=== PATIENT | female | born 1990 | race Caucasian/White ===

== ENCOUNTER 2018-01-25 00:28 | Inpatient (IN) | payer OTHER ==
[2018-01-25 01:42] VITALS: BMI 28.8
[2018-01-25] MEDS ORDERED: Lactated Ringer's 1,000 ML IV ONE (01:42)
--- NOTE | 2018-01-25 01:51 | OBADHP ---
Datetime: 01/25/2018 01:45 Admit Comment, IP Provider: 28yo c/o leaking fluid. No VB, ctxs. Good FM. Otherwise without complaints. PMHx Pregest DM PSHx denies Meds PNV, Metformin, Insulin at night NKDA OBHx SocHx No tob,etoh,drugs A: 38wks, PROM, GBS negative, Category I FHT P: Admit for management. Consider pitocin augmentation if indication. Discussed plan with hao arthur and all patient questions answered. Pelvic Type - PN: Adequate Extremities - PN: Normal Abdomen - PN: Normal Back - PN: Normal Breast - PN: Normal Lungs - PN: Normal Heart - PN: Normal Thyroid - PN: Normal Neurologic - PN: Normal HEENT - PN: Normal General - PN: Normal FHR - Baseline A Provider: 130s-140s Amniotic Fluid Color, Provider: Clear Membranes, Provider: Ruptured Contraction Comments Provider: None Comments, ACOG Physical Exam: Cephalic via sono EFW 7lbs Pool Provider: Positive Vital Signs Provider: Reviewed; Within Normal Limits IP Chief Complaint: Suspected ruptured membranes NICHD Variability Prov Fetus A: Moderate 6-25bpm NICHD Accel Fetus A IP Provider: 15X15 FHR Category Provider Fetus A: Category I NICHD Decel Fetus A IP Provider: None Dilatation, Provider: FT Effacement, Provider: 50 Station, Provider: -3 Genitourinary Exam: Normal DTRs - PN: Normal EGA AdmitDate IP: 38.0 IP Adm Impression: Term, intrauterine ; No Active Labor; Ruptured Membranes IP Admit Plan: Admit to unit
[2018-01-25] MEDS: Lactated Ringer's 1,000 ML IV SCH ×2 (02:05→09:00)
[2018-01-25 03:17] VITALS: RESP 20
[2018-01-25 03:36] LABS: BASO % 0.2 % (0.0-2.0); EOS # 0.3 K/uL (0.0-0.7); EOS % 2.8 % (0.0-4.0); HEMOGLOBIN 9.1 g/dL (12.0-16.0); LYMPH # 3.1 K/uL (1.0-4.3); LYMPH % 27.5 % (20.0-40.0); MEAN CELL VOLUME 64.8 fl (81.0-99.0); MEAN CORPUSCULAR HEMOGLOBIN 20.3 pg (27.0-31.0); MEAN CORPUSCULAR HGB CONC 31.3 g/dL (33.0-37.0); MEAN PLATELET VOLUME 8.9 fl (7.2-11.7); MONO # 0.6 K/uL (0.0-0.8); MONO % 5.7 % (0.0-10.0); NEUT # 7.1 K/uL (1.8-7.0); NEUT % 63.8 % (50.0-75.0); NRBC % 0.1 % (0.0-0.0); RBC 4.48 Mil/uL (3.80-5.20); RED CELL DISTRIBUTION WIDTH 16.3 % (11.5-14.5); WHITE BLOOD COUNT 11.2 K/uL (4.8-10.8)
[2018-01-25] MEDS ORDERED: Oxytocin 30 units/LR 500ML 30 U/500 ML BAG IV ONE (11:17)
[2018-01-25] MEDS ORDERED: Fentanyl/Bupivacaine HCl 250 ML EPI ONE (12:01)
--- NOTE | 2018-01-25 13:18 | OBPN ---
Datetime: 01/25/2018 09:05 IP Progress Impression: Reassuring heart rate IP Informed Consent Obtain: Vaginal Delivery; Risks, Benefits and Alternatives Discussed IP Progress Plan: Continue present management; Induction; Anticipate Vaginal Delivery IP Progress Note Comment: OB Hospitalist note. Sign out rec'd. She had SROM and started on Pitocin. She feels occ CTX;+SROM; No VB. +FM A: Iup at 38w SROM early labor PLAN: dicussion about Pitocin, labor, medicatoins, risks/complicatoins, delivery and . S he understood. Continue curreent managment FHR Category Provider Fetus A: Category I Datetime: 01/25/2018 01:45 Pool Provider: Positive Membranes, Provider: Ruptured Amniotic Fluid Color, Provider: Clear Contraction Comments Provider: None FHR - Baseline A Provider: 130s-140s Vital Signs Provider: Reviewed; Within Normal Limits NICHD Accel Fetus A IP Provider: 15X15 NICHD Variability Prov Fetus A: Moderate 6-25bpm Dilatation, Provider: FT Effacement, Provider: 50 Station, Provider: -3 NICHD Decel Fetus A IP Provider: None
--- NOTE | 2018-01-25 13:22 | OBPN ---
Datetime: 01/25/2018 13:15 IP Progress Note Comment: Notified accucheck 150mg/dl ...will give 2U Reg Inusin one dose
[2018-01-25] MEDS ORDERED: Insulin Regular 100 units/ml SC ONE (13:30)
--- NOTE | 2018-01-25 15:04 | OBPN ---
Datetime: 01/25/2018 15:00 IP Progress Impression: Reassuring heart rate IP Progress Plan: Continue present management; Augmentation; Anticipate Vaginal Delivery Contraction Comments Provider: 2-3m IP Progress Note Comment: She feels good with epidural. Pit at 8miu/h A: latnet phase of labor PLAN: Pit at 8miu/h; disucssio nabout labor (early latent phase)...continue managment FHR Category Provider Fetus A: Category I Dilatation, Provider: 3-4 Effacement, Provider: 90 Station, Provider: -1
--- NOTE | 2018-01-25 18:55 | OBPN ---
Datetime: 01/25/2018 18:46 IP Progress Plan Other: Hold Pitocin IP Progress Impression Other: Hyperstimulation IP Progress Impression: Normal progression of labor; Reassuring heart rate IP Informed Consent Obtain: Vaginal Delivery; Risks, Benefits and Alternatives Discussed Membranes, Provider: Ruptured Contraction Comments Provider: q1min FHR - Baseline A Provider: 140 Presentation-Admit: Vertex IP Progress Note Comment: Earlier it was noted that she was hyperstimulating...CTX q 1min Pitocin wa s decreased from 8miu/ to 4miu/h...continued to have CTX, Will hold pitocin..observe labor progress (Active phase of labor). NICHD Accel Fetus A IP Provider: 15X15 FHR Category Provider Fetus A: Category I NICHD Variability Prov Fetus A: Moderate 6-25bpm Dilatation, Provider: 7 Effacement, Provider: 100 Station, Provider: 0 NICHD Decel Fetus A IP Provider: None
--- NOTE | 2018-01-25 22:43 | OBPN ---
Datetime: 01/25/2018 21:35 IP Progress Impression Other: Second stage of labor IP Progress Plan: Anesthesia consult; Anticipate Vaginal Delivery Contraction Comments Provider: 2m FHR - Baseline A Provider: 150 Presentation-Admit: Vertex IP Progress Note Comment: She has been waiting for anesthesiologist because she has more back pain. Dr Malin was in the OR with a C/S... Second stage of labor Discussion with mary grace about second stage. She would like a top off dose and start pushing after she feels some relief. Vital Signs Provider: Reviewed; Within Normal Limits NICHD Accel Fetus A IP Provider: 15X15 FHR Category Provider Fetus A: Category I NICHD Variability Prov Fetus A: Moderate 6-25bpm Dilatation, Provider: 10 Effacement, Provider: 100 Station, Provider: 0 NICHD Decel Fetus A IP Provider: None
[2018-01-25] MEDS ORDERED: Lidocaine 2% PF (10 ml) Amp ONE (22:59)
[2018-01-26] MEDS ORDERED: Oxycodone/Acetaminophen 5/325 mg Tab PO PRN (01:27)
[2018-01-26] MEDS ORDERED: Benzocaine/Menthol SPRAY TOP PRN (01:27)
[2018-01-26 11:31] LABS: BASO % 0.2 % (0.0-2.0); EOS # 0.1 K/uL (0.0-0.7); EOS % 0.4 % (0.0-4.0); LYMPH # 2.2 K/uL (1.0-4.3); LYMPH % 14.1 % (20.0-40.0); MEAN CELL VOLUME 65.5 fl (81.0-99.0); MEAN CORPUSCULAR HEMOGLOBIN 20.2 pg (27.0-31.0); MEAN CORPUSCULAR HGB CONC 30.9 g/dL (33.0-37.0); MEAN PLATELET VOLUME 8.3 fl (7.2-11.7); MONO % 6.2 % (0.0-10.0); NEUT # 12.6 K/uL (1.8-7.0); NEUT % 79.1 % (50.0-75.0); RBC 3.49 Mil/uL (3.80-5.20); RED CELL DISTRIBUTION WIDTH 16.4 % (11.5-14.5); WHITE BLOOD COUNT 15.9 K/uL (4.8-10.8)
--- NOTE | 2018-01-26 11:44 | OBDS ---
DELIVERY PERSONNEL Delivery Doctor: Sina Delgado DO Rotary Drill Operator Helper: Kayy Hudson RN Anesthesiologist: Keith Resident: Sánchez MATERNAL INFORMATION Delivery Anesthesia: Local; Epidural Medications in Delivery: Pitocin Estimated Blood Loss (ml): 250 Placenta Cultured: No Maternal Complications: None Provider Comments: She was pushing and when , FH showed no recover. MLE was performed ([facility] mamta as infilttrated prior) And of live male infant form cpeh presentation [id number],9. Ped in at tendance. Infant was placed on mother for skin to skin. cord was clamped and cut by father. Darcie lima delivered intact spontaneously. EBL 200cc She remained stable LABOR SUMMARY EDC: 02/08/2018 00:00 No. Babies in Womb: 1 Attempted: No Labor Anesthesia: None LABOR INFORMATION Reason for Induction: Not Applicable Onset of Labor: 01/25/2018 18:43 Complete Dilatation: 01/25/2018 21:36 Oxytocin: Augmentation Group B Beta Strep: Negative Antibiotics # of Doses: n/a Antibiotics Time of Last Dose: n/a Steroids Given: None Reason Steroids Not Administered: Not Applicable MEMBRANES Membranes Rupture Method: Spontaneous Rupture of Membranes: 01/24/2018 23:30 Length of Rupture (hrs): 25.70 Amniotic Fluid Color: Clear Amniotic Fluid Amount: Moderate Amniotic Fluid Odor: Normal STAGES OF LABOR Stage 1 hrs: 2 Stage 1 min: 53 Stage 2 hrs: 3 Stage 2 min: 36 Stage 3 hrs: 0 Stage 3 min: 7 Total Time in Labor hrs: 6 Total Time in Labor min: 36 VAGINAL DELIVERY Episiotomy: Median Laceration Extension: N/A Laceration Type: None Laceration Repair: Yes Laceration Repair Note: MLE repaired with 2.0 VIcryl Rapdie suture Initial Vag Sponge Count: 10 Final Vag Sponge Count: 10 Initial Vag Sharps Count: 3 Final Vag Sharps Count: 3 Sponge Count Correct: Yes Sharps Count Correct: Yes Count Comment: count correct 2 needles/one syringe BABY A INFORMATION Delivery Date/Time: 01/26/2018 01:12 Method of Delivery: Vaginal Born in Route : No : N/A Forceps: N/A Vacuum Extraction: N/A Shoulder Dystocia : No SHOULDER DYSTOCIA BABY A Delivery Date/Time: 01/26/2018 01:12 PRESENTATION/POSITION BABY A Presentation: Cephalic PLACENTA INFORMATION BABY A Placenta Delivery Time : 01/26/2018 01:19 Placenta Method of Delivery: Spontaneous Placenta Status: Delivered SCORES BABY A Heart Rate 1 min: >100 bpm Resp Effort 1 min: Good Cry Reflex Irritability 1 min: Cough or Sneeze or Pulls Away Muscle Tone 1 min: Active Motion Color 1 min: Body [place], Extremities Blue Resuscitation Effort 1 min: Tactile Stimulation SCORE 1 MIN: 9 Heart Rate 5 min: >100 bpm Resp Effort 5 min: Good Cry Reflex Irritability 5 min: Cough or Sneeze or Pulls Away Muscle Tone 5 min: Active Motion Color 5 min: Body [place], Extremities Blue Resuscitation Effort 5 min: N/A SCORE 5 MIN: 9 INFORMATION BABY A Gestational Age at Delivery: 38.1 Gestational Status: Term Outcome : Liveborn Condition : Stable Sex: Male IDENTIFICATION/MEDS BABY A ID Band Number: [id number] ID Band Location: Left Leg; Left Arm WEIGHT/LENGTH BABY A Birthweight (gms): 3430 Infant Weight (lb): 7 Weight (oz): 9 CORD INFORMATION BABY A No. Cord Vessels: 3 Nuchal Cord : N/A Cord Blood Taken: Yes Suction: Mouth; Nose ASSESSMENT BABY A Infant Complications: None Physical Findings at Delivery: Caput Succedaneum Respirations: Grunting Brand Director/ALS Called : No Care By: Alessio/Dr Mauricio Transferred To: Remains with Mother
[2018-01-26] MEDS ORDERED: Insulin Detemir 100 Units/ml Inj SC SCH (22:00)
--- NOTE | 2018-01-27 09:21 | OBPPN ---
Datetime: 01/27/2018 09:18 PP Pain Prov: Within normal limits PP Nausea Prov: Denies PP Flatus Prov: Yes PP BM Prov: Yes PP Breasts Prov: Normal PP Heart Prov: Normal PP Lungs Prov: Normal PP Abdomen/Uterus Prov: Normal PP Lochia Prov: Normal PP Vulva/Perineum Prov: Normal PP CVA Tenderness Prov: Normal PP Extremities Prov: Normal PP Impression Prov: Normal progression PP Plan Prov: Discharge PP Progress Note Prov: She feels good. She want to go home >36h H/H 01/25 PPD1 Anemia - asymptomatic PLAN: discharge Fe Motrin F/u 6w Vital Signs Provider PP: Reviewed
--- NOTE | 2018-01-27 15:58 | OBDCSUM ---
Datetime: 01/27/2018 10:09 Discharged to, Provider: Home Follow up at, Provider: Gopal Disch Instr Activity: Normal activity; May be up to bathroom Discharge Diagnosis, Provider: Term Delivered Discharge Time: 01/27/2018 14:10 Follow up in weeks, Provider: 6 weeks Discharge Comment, Provider: Anemia - asymptomatic - given Andrew 90 QD
[2018-01-27 18:44] VITALS: BP 111/73; PULSE 92; TEMP 98.8; O2SAT 100
== END 2018-01-27 14:10 | disposition home or self-care (01) | DRG 775 ==
LOC: H.EROB2 00:28 → H.L&D 01:42 → H.OB/GYN 01-26 03:11
PROVIDERS: ADMIT Obstetrics & Gynecology; ATTEND Obstetrics & Gynecology
PROC: 10E0XZZ Delivery of Products of Conception, External Approach (ICD-10-PCS; principal; 2018-01-25)
PROC: 0W8NXZZ Division of Female Perineum, External Approach (ICD-10-PCS; 2018-01-25)
PROC: 4A1HXCZ Monitoring of Products of Conception, Cardiac Rate, External Approach (ICD-10-PCS; 2018-01-25)
DX: O24.424 Gestational diabetes mellitus in childbirth, insulin controlled (principal); O90.81 Anemia of the puerperium; Z37.0 Single live birth; Z3A.38 38 weeks gestation of pregnancy